=== PATIENT | female | born 1995 | race Caucasian/White ===

== ENCOUNTER 2018-04-22 12:21 | Emergency (ER) | payer OTHER ==
[2018-04-22] MEDS ORDERED: Ibuprofen TAB* 600 MG PO ONE (14:08)
--- NOTE | 2018-04-22 14:11 | UC ---
Throat Pain/Nasal Rivas HPI - HPI Summary HPI Summary: Patient has had 4 days of sore throat, woke up today, N/V and cant swollow - History of Current Complaint Stated Complaint: SORE THROAT Time Seen by Provider: 04/22/18 14:06 Hx Obtained From: Patient Hx Last Menstrual Period: 08/30/15 ?: Yes Onset/Duration: Sudden Onset, Lasting Days - 4 Severity: Moderate Associated Signs & Symptoms: Positive: Dysphagia, Fever, Vomiting - Allergies/Home Medications Allergies/Adverse Reactions: Allergies Allergy/AdvReac Type Severity Reaction Status Date / Time No Known Allergies Allergy Verified 04/22/18 14:12 Home Medications: Home Medications Calcium Carbonate CHEW TAB* [Tums*] 1,000 mg PO ONCE PRN 04/22/18 [History Confirmed 04/22/18] O C 1 tab PO DAILY 04/22/18 [History Confirmed 04/22/18] PMH/Surg Hx/FS Hx/Imm Hx Previously Healthy: Yes - Surgical History Surgical History: None - Family History Known Family History: Positive: Hypertension - Social History Alcohol Use: None Substance Use Type: None Smoking Status (MU): Never Smoked Tobacco Review of Systems Constitutional: Fever, Fatigue Skin: Negative Eyes: Negative ENT: Sore Throat, Sinus Congestion Respiratory: Cough Cardiovascular: Negative Gastrointestinal: Negative Genitourinary: Negative Motor: Negative Neurovascular: Negative Musculoskeletal: Negative Neurological: Negative Psychological: Negative Is Patient Immunocompromised?: No All Other Systems Reviewed And Are Negative: Yes Physical Exam Triage Information Reviewed: Yes Appearance: Well-Nourished, Ill-Appearing, Pain Distress Vital Signs Reviewed: Yes Eye Exam: Normal ENT: Positive: Pharyngeal erythema, TM bulging, TM red, Tonsillar swelling, Tonsillar exudate Dental Exam: Normal Neck exam: Normal Neck: Positive: Supple, Nontender, Enlarged Nodes @ - tonsilar Respiratory Exam: Normal Respiratory: Positive: Chest non-tender, Lungs clear, Normal breath sounds Cardiovascular Exam: Normal Cardiovascular: Positive: RRR, No Murmur, Pulses Normal Abdominal Exam: Normal Abdomen Description: Positive: Nontender, No Organomegaly, Soft Musculoskeletal Exam: Normal Musculoskeletal: Positive: Strength Intact, ROM Intact, No Edema Neurological Exam: Normal Neurological: Positive: Alert Psychological Exam: Normal Skin Exam: Normal Throat Pain/Nasal Course/Dx - Course Course Of Treatment: hx obtained, exam performed ,meds reviewed, rapid strep obtained, treated for nausea and strep - Differential Dx/Diagnosis Differential Diagnosis/HQI/PQRI: Influenza, Laryngitis, Pharyngitis, Sinusitis, Tonsillitis Provider Diagnoses: Strep pharyngitis. nausea Discharge - Sign-Out/Discharge Documenting (check all that apply): Patient Departure All imaging exams completed and their final reports reviewed: Yes - Discharge Plan Condition: Stable Disposition: HOME Prescriptions: Amoxicillin PO (*) [Amoxicillin 875 MG (*)] 875 mg PO BID #20 tab Patient Education Materials: Strep Throat (DC) Forms: *School Release Referrals: No Primary Care Phys,NOPCP [Primary Care Provider] - Additional Instructions: 1. take the medication as prescribed. 2. Stay hydrated and get plenty of rest. 3. Change your tooth brush in 2 days and again at the end of treatment - Billing Disposition and Condition Condition: STABLE Disposition: Home
[2018-04-22] MEDS ORDERED: Ondansetron ODT TAB* 4 MG PO ONE (14:16)
[2018-04-22 14:27] VITALS: BP 112/54
== END 2018-04-22 14:43 | disposition home or self-care (01) ==
LOC: UCCORT 12:21
DX: J02.0 Streptococcal pharyngitis (principal)
CPT/HCPCS: 87651; 99212; A9270-GY; G0463